=== PATIENT | female | born 1995 | race Caucasian/White ===

== ENCOUNTER 2022-02-18 15:11 | Emergency (ER) | payer OTHER, SELFPAY ==
--- NOTE | ~2022-02-18 | XR_ITS ---
EXAMINATION: XR CHEST CLINICAL INFORMATION: Cough. COMPARISON: None TECHNIQUE: 2 views of the chest were obtained. FINDINGS: Normal cardiomediastinal silhouette. No focal airspace opacity, pleural effusion or pneumothorax. No acute osseous abnormalities. Right upper quadrant surgical clips. XR/XR chest 2V IMPRESSION: No acute cardiopulmonary findings.
[2022-02-18 15:48] VITALS: BP 118/61; PULSE 86; RESP 16; TEMP 37.8; O2SAT 97; BMI 22.7
[2022-02-18 16:07] LABS: Strep A Nucleic Acid Negative (Negative)
[2022-02-18 16:16] LABS: COVID-19 Test Negative (Negative); IDNOW Serial# 16C4AD1C; Influenza A Negative (Negative); Influenza B2 Negative (Negative)
--- NOTE | 2022-02-18 17:00 | ED.URI ---
HPI - URI/Sore Throat General Chief Complaint: Upper Respiratory Symptoms Stated Complaint: fever/congested/coughing Time Seen by Provider: 02/18/22 17:00 History of Present Illness HPI Narrative: Patient complains of 5 days of fever congestion cough productive of sputum, there is no shortness of breath no chest pain, she did have 1 episode of vomiting during a coughing spell but otherwise no other abdominal pain vomiting nausea or cough, no diarrhea no dysuria Related Data Previous Rx's Medication Instructions Recorded azithromycin 250 mg tablet See Rx Instructions PO .COMPLEX #6 02/18/22 (Zithromax Z-Berot) tabs ibuprofen 600 mg tablet 600 mg PO Q6H PRN fever or pain 02/18/22 #20 tabs Allergies Allergy/AdvReac Type Severity Reaction Status Date / Time No Known Allergies Allergy Unverified 05/20/20 18:42 Review of Systems Review of Systems: Positive cough congestion fever Negatives are no dizziness no weakness no confusion no headache no stiff neck no chest pain no shortness of breath no nausea vomiting or diarrhea now, no dysuria no skin rash no joint pains Yes all other systems are reviewed and are negative FOR[facility]LY [facility] Past Medical History Source: nursing notes reviewed Social History Social History Advance Directives: No Advance Directives Information Provided: No Physical Exam Vital Signs: Vital Signs: Last Vital Signs Temp 100.0 F 02/18/22 15:48 Pulse 86 02/18/22 15:48 Resp 16 02/18/22 15:48 BP 118/61 02/18/22 15:48 Pulse Ox 97 02/18/22 15:48 O2 Del Method 02/18/22 15:48 BMI result Body Mass Index 22.7 General appearance is no acute distress Eyes is anicteric no pallor The sinuses nontender The pharynx no redness swelling or exudate, voice is normal, uvula is midline, membranes are moist Neck is supple Chest is clear to auscultation full symmetric equal breath sounds Heart no murmur Abdomen soft nontender Extremities no edema no calf tenderness or swelling Skin no rash Course Course Course Narrative: Testing for COVID, strep, flu were all negative, chest x-ray was normal, vitals were normal and patient is comfortable and breathing easily MDM - URI/Sore Throat Lab Data Attestation: I reviewed the patient's lab results. Labs: Lab Results 0602/18/22 02/18/22 Range/Units 15:48 15:48 15:48 COVID-19 (SALONI) Negative (Negative) COVID-19 Clin Com See Note Influenza Type A (SHERIDAN) Negative (Negative) Influenza Type B (SHERIDAN) Negative (Negative) Influenza A & B Note See Note S. pyogenes GrpA SHERIDAN Negative (Negative) Discharge Plan Discharge Clinical Impression: Bronchitis Patient Disposition: Home, Self-Care Additional Instructions: Flu test, strep test, COVID test all negative Chest x-ray normal as well as vital signs and physical exam This may be a viral illness but because you have bad cough and fever we are treating for the possibility of bronchitis with antibiotic Zithromax Take probiotics [id number] available at any pharmacy and the vitamin section to prevent diarrhea from antibiotics Return any time any worse condition or any concerns I recommend repeat COVID testing before your return to work in a [employer] as sometimes a 1st test for COVID will miss it For nasal congestion [id number] Afrin or generic equivalent nose spray is very effective for congestion for up to a week Prescriptions: New azithromycin [Zithromax Z-Berto] 250 mg tablet See Rx Instructions .ROUTE .COMPLEX Qty: 6 0RF Rx Instructions: For 250 mg dose pack: take 500 mg today (day 1), then 250 mg for 4 days (days 2-5) ibuprofen 600 mg tablet 600 mg PO Q6H PRN (Reason: fever or pain) Qty: 20 0RF Stand Alone Forms: Work/School Release
== END 2022-02-18 18:48 | disposition home or self-care (01) ==
PROVIDERS: Emergency Provider Student in an Organized Health Care Education/Training Program
DX: J40 Bronchitis, not specified as acute or chronic (principal); Z20.822 Contact with and (suspected) exposure to COVID-19; R50.9 Fever, unspecified
CPT/HCPCS: 71046; 87502; 87635; 87651; 99282; 99283